=== PATIENT | female | born 1990 | race Caucasian/White ===

== ENCOUNTER 2016-12-03 01:23 | Emergency (ER) | payer BC ==
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
[2016-12-03] MEDS ORDERED: Bacitracin Oint 1 GM U/D Packet TOP ONE (02:27)
[2016-12-03] MEDS ORDERED: Ondansetron 4 MG Tab.DIS PO ONE (02:32)
== END 2016-12-03 02:57 | disposition home or self-care (01) ==
LOC: JP.ED 01:23
DX: S50.312A Abrasion of left elbow, initial encounter (principal); F41.9 Anxiety disorder, unspecified; F10.920 Alcohol use, unspecified with intoxication, uncomplicated; E05.90 Thyrotoxicosis, unspecified without thyrotoxic crisis or storm; Z79.899 Other long term (current) drug therapy; Y04.0XXA Assault by unarmed brawl or fight, initial encounter
CPT/HCPCS: 99284; A9270

== ENCOUNTER 2016-12-22 14:51 | Emergency (ER) | payer BC ==
[2016-12-22] MEDS ORDERED: Ketorolac 30 MG/ML SDV IVPUSH ONE (15:24)
[2016-12-22] MEDS ORDERED: HYDROmorphone 1 MG/ML Syringe IVPUSH ONE (15:24)
[2016-12-22] MEDS ORDERED: methylPREDNISolone Sodium Succinate 125 MG/2 ML SDV IVPUSH ONE (15:24)
[2016-12-22] MEDS ORDERED: Sodium Chloride 0.9% 10 ML Syringe FLUSH PRN (15:25)
[2016-12-22] MEDS ORDERED: diphenhydrAMINE 50 MG/ML SDV IVPUSH ONE (15:25)
--- NOTE | 2016-12-22 15:53 | EDM.PDOC ---
[id number] MIGRAINE Time Seen by Provider: 12/22/16 15:25 Source of Information: Reports: Patient History Limitations: Reports: No Limitations - History of Present Illness INITIAL COMMENTS - FREE TEXT/NARRATIVE: 26-year-old female with chronic migraine headaches has had a headache since yesterday, particularly bad since this morning when she woke up. It is generalized, throbbing, she has mild photophobia and nausea and vomited once this morning. She has been taking topiramate twice daily for the last 2 months and it has been helping but this one she can't get controlled. She comes into the emergency room a couple of times a year, usually gets a combination of Toradol, Dilaudid, an antiemetic and sometimes fluids. Onset: Unknown/Unsure (Started sometime in the last 2 days) Location: Reports: Head Quality: Reports: Throbbing Severity: Moderate Worsens with: Reports: Movement Associated Symptoms: Reports: Malaise, Nausea/Vomiting. 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/BYN History: pt currently on depo shot for control Neurological History: Reports: Migraines Psychiatric History: Reports: Anxiety Endocrine/Metabolic History: Reports: Hyperthyroidism - Infectious Disease History Infectious Disease History: Reports: Chicken Pox Social & Family History - Tobacco Use Smoking Status *Q: Never Smoker Second Hand Smoke Exposure: No - Caffeine Use Caffeine Use: Reports: Coffee - Alcohol Use Days Per Week of Alcohol Use: 0 - Recreational Drug Use Recreational Drug Use: No ED ROS GENERAL - Review of Systems Review Of Systems: See Below Constitutional: Reports: Malaise. Denies: Fever, Chills Respiratory: Denies: Shortness of Breath Cardiovascular: Denies: Chest Pain GI/Abdominal: Reports: Nausea, Vomiting. Denies: Abdominal Pain : Reports: No Symptoms Skin: Reports: No Symptoms - Physical Exam Exam: See Below Exam Limited By: No Limitations General Appearance: Alert, Mild Distress (Looks uncomfortable) Eye Exam: Bilateral Eye: EOMI, PERRL Respiratory/Chest: No Respiratory Distress Neuro Exam (Abbreviated): Alert, Oriented, No Motor/Sensory Deficits Skin Exam: Warm, Dry Course - Vital Signs Last Recorded V/S: Last Vital Signs Temp 98.4 F 12/22/16 15:07 Pulse 67 12/22/16 16:25 Resp 14 12/22/16 16:25 BP 119/76 12/22/16 16:25 Pulse Ox 98 12/22/16 16:25 - Orders/Labs/Meds Orders: Active Orders 24 hr Category Date Time Status Saline Lock Insert [OM.PC] Routine Oth 12/22/16 15:25 Ordered Meds: Medications Discontinued Medications Generic Name Dose Route Start Last Admin Trade Name Ramos PRN Reason Stop Dose Admin Diphenhydramine HCl 25 mg 12/22/16 15:25 12/22/16 15:37 Benadryl IVPUSH 12/22/16 15:26 25 mg ONETIME ONE Administration Hydromorphone HCl 1 mg 12/22/16 15:24 12/22/16 15:39 Dilaudid IVPUSH 12/22/16 15:25 1 mg ONETIME ONE Administration Ketorolac Tromethamine 30 mg 12/22/16 15:24 12/22/16 15:47 Toradol IVPUSH 12/22/16 15:25 30 mg ONETIME ONE Administration Methylprednisolone Sodium Succinate 125 mg 12/22/16 15:24 12/22/16 15:42 Solu-Medrol IVPUSH 12/22/16 15:25 125 mg ONETIME ONE Administration Sodium Chloride 10 ml 12/22/16 15:25 12/22/16 15:39 Saline Flush FLUSH 10 ml ASDIRECTED PRN Administration Keep Vein Open - Re-Assessments/Exams Free Text/Narrative Re-Assessment/Exam: 12/22/16 15:53 A saline lock was placed, and she was given 1 mg of Dilaudid IV, 30 mg of Toradol IV, 25 mg of Benadryl IV, and 125 mg of Solu-Medrol. She was observed for 45 minutes. 12/22/16 16:49 Patient had fairly good relief from the medications. She is going to go home and rest and will return if worsening. Departure - Departure Time of Disposition: 16:59 Disposition: Home, Self-Care 01 Condition: Good Clinical Impression: Migraine - Discharge Information Instructions: Migraine Headache, [id number] Referrals: PCP,None [Primary Care Provider] - Forms: ED Department Discharge Additional Instructions: Rest, fluids, and continue your regular medications as prescribed. Recheck in 2- 3 days if not significant improvement. - My Orders Last 24 Hours: My Active Orders 12/22/16 15:25 Saline Lock Insert [OM.PC] Routine - Assessment/Plan Last 24 Hours: My Active Orders 12/22/16 15:25 Saline Lock Insert [OM.PC] Routine
[2016-12-22 16:26] VITALS: BP 119/76
== END 2016-12-22 17:00 | disposition home or self-care (01) ==
LOC: JP.ED 14:51
DX: G43.909 Migraine, unspecified, not intractable, without status migrainosus (principal); E05.90 Thyrotoxicosis, unspecified without thyrotoxic crisis or storm; Z79.899 Other long term (current) drug therapy
CPT/HCPCS: 96374; 96375; 99283; J1170; J1200; J1885; J2930; J7050

== ENCOUNTER 2017-01-09 06:53 | Emergency (ER) | payer BC ==
[2017-01-09 07:23] VITALS: BP 138/73
[2017-01-09] MEDS ORDERED: Ketorolac 60 MG/2 ML SDV IM ONE (07:42)
--- NOTE | 2017-01-09 08:20 | EDM.PDOC ---
[id number]: BACK PAIN Time Seen by Provider: 01/09/17 07:35 Source of Information: Reports: Patient History Limitations: Reports: No Limitations - History of Present Illness INITIAL COMMENTS - FREE TEXT/NARRATIVE: 26-year-old female with chronic low back pain intermittently has a flareup of fairly intense pain in the right lower back since yesterday. She was lifting some heavy or objects at work yesterday and "overdid it". Her back was bothering her enough this morning that she had to leave work. She is able to ambulate, no incontinence, no significant symptoms radiating down the legs. She has some pain that extends into the right posterior buttock and hip area. No recent direct trauma. 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/BYN History: pt currently on depo shot for control Musculoskeletal History: Reports: Back Pain, Chronic Neurological History: Reports: Migraines Psychiatric History: Reports: Anxiety Endocrine/Metabolic History: Reports: Hyperthyroidism - Infectious Disease History Infectious Disease History: Reports: Chicken Pox Social & Family History - Tobacco Use Smoking Status *Q: Never Smoker Second Hand Smoke Exposure: No - Caffeine Use Caffeine Use: Reports: Coffee - Alcohol Use Days Per Week of Alcohol Use: 0 - Recreational Drug Use Recreational Drug Use: No ED ROS GENERAL - Review of Systems Review Of Systems: See Below Constitutional: Denies: Fever Respiratory: Denies: Shortness of Breath GI/Abdominal: Denies: Nausea, Vomiting Skin: Reports: No Symptoms Neurological: Reports: No Symptoms ED EXAM,LOWER BACK PAIN/INJURY - Physical Exam Exam: See Below Exam Limited By: No Limitations General Appearance: Alert, Mild Distress (Patient does look uncomfortable, tends to lean forward which is the most comfortable position) Respiratory/Chest: No Respiratory Distress Back Exam: Other (Reacts with point tenderness to palpation along the right paralumbar area, increased pain with extension of the back against resistance) Neurological: No Motor/Sensory Deficits Skin Exam: Warm, Dry Course - Vital Signs Last Recorded V/S: Last Vital Signs Temp 98.5 F 01/09/17 07:26 Pulse 83 01/09/17 07:26 Resp 15 01/09/17 07:26 BP 138/73 01/09/17 07:26 Pulse Ox 98 01/09/17 07:26 - Orders/Labs/Meds Meds: Medications Discontinued Medications Generic Name Dose Route Start Last Admin Trade Name Freq PRN Reason Stop Dose Admin Ketorolac Tromethamine 60 mg 01/09/17 07:42 01/09/17 07:51 Toradol IM 01/09/17 07:43 60 mg ONETIME ONE Administration - Re-Assessments/Exams Free Text/Narrative Re-Assessment/Exam: 01/09/17 08:18 Patient was given an injection of Toradol 60 mg IM and supplied with 15 Flexeril to take 3 times a day. She is to increase her activity as soon as possible and I strongly suggested rechecking with her primary care to set up an appointment with physical therapy so she can learn how to strengthen her lower back. Departure - Departure Time of Disposition: 08:29 Disposition: Home, Self-Care 01 Condition: Good Clinical Impression: Acute exacerbation of chronic low back pain - Discharge Information Instructions: Back Pain, Adult, [id number] Referrals: Merline Griggs ORTHODONTIST [Primary Care Provider] - Forms: ED Department Discharge Care Plan Goals: Increase activity over the next 48 hours but avoid lifting. I would strongly encourage you to recheck with your primary care provider for a physical therapy consultation to strengthen your lower back. Return to ER if worsening such as significant numbness or weakness of your legs or incontinence.
== END 2017-01-09 08:29 | disposition home or self-care (01) ==
LOC: JP.ED 06:53
DX: G89.29 Other chronic pain (principal); M54.5 Low back pain; G43.909 Migraine, unspecified, not intractable, without status migrainosus; E03.9 Hypothyroidism, unspecified; F41.9 Anxiety disorder, unspecified; Z79.899 Other long term (current) drug therapy
CPT/HCPCS: 96372; 99283; J1885

== ENCOUNTER 2017-01-14 20:45 | Emergency (ER) | payer BC ==
[2017-01-14 20:59] VITALS: BP 131/80
[2017-01-14] MEDS ORDERED: Sodium Chloride 0.9% 1,000 ML IV STA (21:46)
--- NOTE | 2017-01-14 21:51 | EDM.PDOC ---
ED HPI GENERAL MEDICAL PROBLEM - General Chief Complaint: Gastrointestinal Problem Stated Complaint: BLOOD IN STOOL AND BACK AND STOMACH PAIN Time Seen by Provider: 01/14/17 21:39 Source of Information: Reports: Patient, Family, RN Notes Reviewed History Limitations: Reports: No Limitations (Is) - History of Present Illness INITIAL COMMENTS - FREE TEXT/NARRATIVE: 26-year-old female presents abdominal pain, she states the abdominal pain started today she is having some bloody stool as well as black tarry stools is 9 /10 and is having some nausea no vomiting no history of abdominal surgeries back pain Pain Score (Numeric/FACES): 9 abdomen Pain Score (Numeric/FACES): 9 - Related Data Allergies Allergy/AdvReac Type Severity Reaction Status Date / Time No Known Allergies Allergy Verified 01/14/17 21:01 Home Meds: Home Meds Levothyroxine 125 mcg PO DAILY 04/16/15 [History] Ibuprofen 600 mg PO QID PRN 04/17/15 [History] SUMAtriptan [Imitrex] 50 mg PO ASDIRECTED PRN 01/08/16 [History] Topiramate 50 mg PO DAILY 12/22/16 [History] Past Medical History HEENT History: Reports: Impaired Vision Gastrointestinal History: Reports: Chronic Constipation 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: , 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 (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) Other OB/BYN History: pt currently on depo shot for control Musculoskeletal History: Reports: Back Pain, Chronic Neurological History: Reports: Migraines Psychiatric History: Reports: Anxiety Endocrine/Metabolic History: Reports: Hyperthyroidism - Infectious Disease History Infectious Disease History: Reports: Chicken Pox - Past Surgical History Cardiovascular Surgical History: Reports: None Respiratory Surgical History: Reports: None GI Surgical History: Reports: None Female Surgical History: Reports: None Endocrine Surgical History: Reports: None Neurological Surgical History: Reports: None Musculoskeletal Surgical History: Reports: None Oncologic Surgical History: Reports: None Dermatological Surgical History: Reports: None Social & Family History - Tobacco Use Smoking Status *Q: Never Smoker Second Hand Smoke Exposure: No - Caffeine Use Caffeine Use: Reports: None - Alcohol Use Days Per Week of Alcohol Use: 0 - Recreational Drug Use Recreational Drug Use: No ED ROS GENERAL - Review of Systems Review Of Systems: See Below Constitutional: Denies: Fever, Chills HEENT: Reports: No Symptoms Respiratory: Reports: No Symptoms Cardiovascular: Reports: No Symptoms GI/Abdominal: Reports: Abdominal Pain, Black Stool, Bloody Stool, Nausea : Reports: No Symptoms Musculoskeletal: Reports: No Symptoms Skin: Reports: No Symptoms Neurological: Reports: No Symptoms ED EXAM, GI/ABD - Physical Exam Exam: See Below Text/Narrative:: General: Female, in mild discomfort secondary to abdominal pain, alert and oriented x3 HEENT: head is atraumatic normocephalic, eyes pupils equal round reactive to light, sclera clear no conjunctivitis appreciated. Ears tympanic membranes clear and pineda landmarks and light reflex are present bilaterally canals are clear. Nose no septal deviation, nares are clear, no blood present. Mouth mucosa is moist and pink no erythema or exudate noted in soft palate, tongue is midline uvula is midline, dentition is intact. Neck: Supple no thyromegaly no tracheal deviation. Nodes: Cervical nodes subclavicular nodes nontender no palpable lymphadenopathy noted. Lungs: clear to auscultation bilaterally with symmetrical respirations, no adventitious noise appreciated. CV: Regular rate and rhythm S1 and S2 appreciated no murmurs rubs or gallops noted. Abdomen: Soft, generalized tenderness to palpation, no palpable masses or organomegaly appreciated, no distention no guarding bowel sounds are decreased] Neuro: Cranial nerves II through XII grossly intact Skin: Warm and dry, intact Extremities: No lower extremity edema appreciated, pedal pulse is +2. Course - Vital Signs Last Recorded V/S: Last Vital Signs Temp 97.5 F 01/14/17 20:58 Pulse 102 H 01/14/17 20:58 Resp 16 01/14/17 20:58 BP 131/80 01/14/17 20:58 Pulse Ox 99 01/14/17 20:58 - Orders/Labs/Meds Orders: Active Orders 24 hr Category Date Time Status Peripheral IV Care [RC] . DIRECTED Care 01/14/17 21:47 Active Abdomen Pelvis w Cont [CT] Urgent Exams 01/14/17 21:46 Taken Iopamidol [Isovue-300 (61%)] Med 01/14/17 22:30 Active 150 ml IV . DIRECTED PRN Sodium Chloride 0.9% [Normal Saline] 90 ml Med 01/14/17 22:30 Active IV ASDIRECTED Sodium Chloride 0.9% [Saline Flush] Med 01/14/17 21:46 Active 10 ml FLUSH ASDIRECTED PRN Peripheral IV Insertion Adult [OM.PC] Urgent Oth 01/14/17 21:46 Ordered Medication Orders Sodium Chloride (Normal Saline) 90 mls @ 3.5 mls/sec IV ASDIRECTED BEKAH Last Admin: 01/14/17 22:49 Dose: 3.5 mls/sec Iopamidol (Isovue-300 (61%)) 150 ml IV . DIRECTED PRN PRN Reason: RADIOLOGY EXAM Stop: 01/15/17 22:31 Last Admin: 01/14/17 22:49 Dose: 150 ml Sodium Chloride (Saline Flush) 10 ml FLUSH ASDIRECTED PRN PRN Reason: Keep Vein Open Last Admin: 01/14/17 23:15 Dose: 10 ml Admin: 01/14/17 23:13 Dose: 10 ml Labs: Laboratory Tests 01/14/17 01/14/17 01/14/17 Range/Units 21:46 22:00 22:01 WBC 9.0 (4.5-11.0) K/uL RBC 4.30 (3.30-5.50) M/uL Hgb 13.5 (12.0-15.0) g/dL Hct 39.7 (36.0-48.0) % MCV 92 (80-98) fL MCH 31 (27-31) pg MCHC 34 (32-36) % Plt Count 318 (150-400) K/uL Neut % (Auto) 58 (36-66) % Lymph % (Auto) 29 (24-44) % [place] % (Auto) 12 H (2-6) % Eos % (Auto) 1 L (2-4) % Baso % (Auto) 0 (0-1) % Sodium 142 (140-148) mmol/L Potassium 3.6 (3.6-5.2) mmol/L Chloride 109 H (100-108) mmol/L Carbon Dioxide 24 (21-32) mmol/L Anion Gap 12.6 (5.0-14.0) mmol/L BUN 18 (7-18) mg/dL Creatinine 1.2 H (0.6-1.0) mg/dL Est Cr Clr Drug Dosing 60.81 mL/min Estimated GFR (MDRD) 54 L (>60) Glucose 108 H (74-106) mg/dL Lactic Acid 1.8 (0.4-2.0) mmol/L Calcium 8.5 (8.5-10.1) mg/dL Total Bilirubin 0.5 (0.2-1.0) mg/dL AST 13 L (15-37) U/L ALT 11 L (12-78) U/L Alkaline Phosphatase 71 (46-116) U/L Total Protein 7.0 (6.4-8.2) g/dL Albumin 3.4 (3.4-5.0) g/dL Globulin 3.6 H (2.3-3.5) g/dL Albumin/Globulin Ratio 0.9 L (1.2-2.2) Lipase 192 (73-393) U/L Urine Color Urine Appearance Urine pH (4.5-8.0) Ur Specific [place] (1.008-1.030) Urine Protein (NEGATIVE) mg/dL Urine Glucose (UA) (NEGATIVE) mg/dL Urine Ketones (NEGATIVE) mg/dL Urine Occult Blood (NEGATIVE) Urine Nitrite (NEGATIVE) Urine Bilirubin (NEGATIVE) Urine Urobilinogen (NORMAL) mg/dL Ur Leukocyte Esterase (NEGATIVE) Urine RBC (0-5) Urine WBC (0-5) Ur Epithelial Cells Amorphous Sediment Urine Bacteria Urine Mucus Urine HCG, Qual 01/14/17 01/14/17 Range/Units 22:01 22:01 WBC (4.5-11.0) K/uL RBC (3.30-5.50) M/uL Hgb (12.0-15.0) g/dL Hct (36.0-48.0) % MCV (80-98) fL MCH (27-31) pg MCHC (32-36) % Plt Count (150-400) K/uL Neut % (Auto) (36-66) % Lymph % (Auto) (24-44) % [place] % (Auto) (2-6) % Eos % (Auto) (2-4) % Baso % (Auto) (0-1) % Sodium (140-148) mmol/L Potassium (3.6-5.2) mmol/L Chloride (100-108) mmol/L Carbon Dioxide (21-32) mmol/L Anion Gap (5.0-14.0) mmol/L BUN (7-18) mg/dL Creatinine (0.6-1.0) mg/dL Est Cr Clr Drug Dosing mL/min Estimated GFR (MDRD) (>60) Glucose (74-106) mg/dL Lactic Acid (0.4-2.0) mmol/L Calcium (8.5-10.1) mg/dL Total Bilirubin (0.2-1.0) mg/dL AST (15-37) U/L ALT (12-78) U/L Alkaline Phosphatase (46-116) U/L Total Protein (6.4-8.2) g/dL Albumin (3.4-5.0) g/dL Globulin (2.3-3.5) g/dL Albumin/Globulin Ratio (1.2-2.2) Lipase (73-393) U/L Urine Color Yellow Urine Appearance Slightly cloudy Urine pH 6.5 (4.5-8.0) Ur Specific [place] 1.015 (1.008-1.030) Urine Protein Negative (NEGATIVE) mg/dL Urine Glucose (UA) Normal (NEGATIVE) mg/dL Urine Ketones Negative (NEGATIVE) mg/dL Urine Occult Blood Negative (NEGATIVE) Urine Nitrite Negative (NEGATIVE) Urine Bilirubin Small (NEGATIVE) Urine Urobilinogen 1 (NORMAL) mg/dL Ur Leukocyte Esterase Negative (NEGATIVE) Urine RBC Not seen (0-5) Urine WBC Not seen (0-5) Ur Epithelial Cells Moderate Amorphous Sediment Moderate Urine Bacteria Few Urine Mucus Few Urine HCG, Qual Negative Meds: Medications Generic Name Dose Route Start Last Admin Trade Name Freq PRN Reason Stop Dose Admin Sodium Chloride 90 mls @ 3.5 mls/sec 01/14/17 22:30 01/14/17 22:49 Normal Saline IV 3.5 mls/sec ASDIRECTED BEKAH Administration Iopamidol 150 ml 01/14/17 22:30 01/14/17 22:49 Isovue-300 (61%) IV 01/15/17 22:31 150 ml . DIRECTED PRN Administration RADIOLOGY EXAM Sodium Chloride 10 ml 01/14/17 21:46 01/14/17 23:15 Saline Flush FLUSH 10 ml ASDIRECTED PRN Administration Keep Vein Open Discontinued Medications Generic Name Dose Route Start Last Admin Trade Name Freq PRN Reason Stop Dose Admin Hydromorphone HCl 0.5 mg 01/14/17 23:00 01/14/17 23:10 Dilaudid IVPUSH 01/14/17 23:01 0.5 mg ONETIME ONE Administration Hydromorphone HCl 1 mg 01/14/17 23:50 Dilaudid IVPUSH 01/14/17 23:51 ONETIME ONE Sodium Chloride 1,000 mls @ 500 mls/hr 01/14/17 21:46 01/14/17 23:03 Normal Saline IV 01/14/17 23:45 500 mls/hr .BOLUS STA Administration Ondansetron HCl 4 mg 01/14/17 23:00 01/14/17 23:10 Zofran IVPUSH 01/14/17 23:01 4 mg ONETIME ONE Administration Sodium Chloride 10 ml 01/14/17 22:30 01/14/17 22:49 Saline Flush FLUSH 01/14/17 22:31 10 ml ONETIME ONE Administration Departure - Departure Time of Disposition: 23:53 Disposition: Home, Self-Care 01 Condition: Good Clinical Impression: Functional constipation - Discharge Information Forms: ED Department Discharge Additional Instructions: Take the full colonoscopy prep with MiraLAX, Please followup with your primary care provider in 3-5 days if not better, please call return to the emergency department with worsening of symptoms. - My Orders Last 24 Hours: My Active Orders 01/14/17 21:46 Abdomen Pelvis w Cont [CT] Urgent Sodium Chloride 0.9% [Saline Flush] 10 ml FLUSH ASDIRECTED PRN Peripheral IV Insertion Adult [OM.PC] Urgent 01/14/17 21:47 Peripheral IV Care [RC] . DIRECTED 01/14/17 22:30 Iopamidol [Isovue-300 (61%)] 150 ml IV . DIRECTED PRN Sodium Chloride 0.9% [Normal Saline] 90 ml IV ASDIRECTED - Assessment/Plan Last 24 Hours: My Active Orders 01/14/17 21:46 Abdomen Pelvis w Cont [CT] Urgent Sodium Chloride 0.9% [Saline Flush] 10 ml FLUSH ASDIRECTED PRN Peripheral IV Insertion Adult [OM.PC] Urgent 01/14/17 21:47 Peripheral IV Care [RC] . DIRECTED 01/14/17 22:30 Iopamidol [Isovue-300 (61%)] 150 ml IV . DIRECTED PRN Sodium Chloride 0.9% [Normal Saline] 90 ml IV ASDIRECTED Plan: Assessment Acuity = acute Site and laterality = functional constipation Etiology = slow transit time Manifestations = abdominal pain Location of injury = Home Lab values = CBC unremarkable, creatinine elevated 1.2 consistent acute renal failure stage GII urinalysis unremarkable beta-hCG was negative, occult blood diagnostic negative, CT scan shows no acute process large amount of stool is noted: Plan Recommend colonoscopy prep with MiraLAX for clean out follow-up primary care 3- 5 days for reevaluation Patient was in agreement with the plan all questions were answered, they were instructed to return to the emergency department or call for worsening symptoms. This note was dictated using [employer] voice recognition software please call with any questions.
[2017-01-14] MEDS ORDERED: Iopamidol 612 MG/ML 150 ML Bottle IV PRN (22:30)
[2017-01-14] MEDS ORDERED: Sodium Chloride 0.9% 90 ML IV SCH (22:30)
[2017-01-14] MEDS ORDERED: Sodium Chloride 0.9% 10 ML Syringe FLUSH ONE (22:30)
[2017-01-14] MEDS ORDERED: Ondansetron 4 MG/2 ML SDV IVPUSH ONE (23:00)
[2017-01-14] MEDS ORDERED: HYDROmorphone 0.5 MG/0.5 ML Syringe IVPUSH ONE (23:00)
[2017-01-14] MEDS: Sodium Chloride 0.9% 10 ML Syringe FLUSH PRN ×2 (23:13→23:15)
[2017-01-14] MEDS ORDERED: HYDROmorphone 1 MG/ML Syringe IVPUSH ONE (23:50)
== END 2017-01-15 00:32 | disposition home or self-care (01) ==
LOC: JP.ED 20:45
DX: K59.04 Chronic idiopathic constipation (principal); F41.9 Anxiety disorder, unspecified; E03.9 Hypothyroidism, unspecified; Z79.899 Other long term (current) drug therapy
CPT/HCPCS: 36415; 74177; 80053; 81001; 81025; 82270; 83605; 83690; 85025; 96361; 96374; 96375; 96376; 99284; J1170; J2405; J7030; J7040; J7050

== ENCOUNTER 2017-08-26 02:24 | Emergency (ER) | payer BC ==
[2017-08-26 02:34] VITALS: BP 130/80
[2017-08-26] MEDS ORDERED: Lactated Ringers 1,000 ML IV ONE (02:54)
[2017-08-26] MEDS ORDERED: diphenhydrAMINE 50 MG/ML SDV IVPUSH ONE (02:55)
[2017-08-26] MEDS ORDERED: Sodium Chloride 0.9% 10 ML Syringe FLUSH PRN (02:55)
[2017-08-26] MEDS ORDERED: Prochlorperazine 5 MG in Sodium Chloride 0.9% 50 ML IV ONE (02:55)
[2017-08-26] MEDS ORDERED: fentaNYL 100 MCG/2 ML SDV IVPUSH ONE ×2 (02:58→04:39)
--- NOTE | 2017-08-26 03:01 | EDM.PDOC ---
ED HPI GENERAL MEDICAL PROBLEM - General Chief Complaint: Headache Stated Complaint: HEADACHE FOR 5 DAYS Time Seen by Provider: 08/26/17 02:54 Source of Information: Reports: Patient, Family, RN Notes Reviewed History Limitations: Reports: No Limitations - History of Present Illness INITIAL COMMENTS - FREE TEXT/NARRATIVE: 27-year-old female presents emergency department today with complaint of migraine type headache, she does have extensive history of migraines usually uses a triptan however she is currently estimates about 12 weeks intrauterine . She does have nausea and vomiting as well as photophobia she describes the migraine is typical for her she has been limiting herself to Tylenol which has provided no relief Headache Pain Score (Numeric/FACES): 5 - Related Data Allergies Allergy/AdvReac Type Severity Reaction Status Date / Time No Known Allergies Allergy Verified 01/14/17 21:01 Home Meds: Home Meds Levothyroxine 200 mcg PO DAILY 04/16/15 [History] SUMAtriptan [Imitrex] 50 mg PO ASDIRECTED PRN 01/08/16 [History] Acetaminophen [Tylenol] 325 mg PO Q4H PRN 08/26/17 [History] Past Medical History HEENT History: Reports: Impaired Vision Gastrointestinal History: Reports: Chronic Constipation 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 SCREENER History: 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: , Other (See Below) Other OB/BYN History: due date mar 10 2018 Musculoskeletal History: Reports: Back Pain, Chronic Neurological History: Reports: Migraines Psychiatric History: Reports: Anxiety Endocrine/Metabolic History: Reports: Hyperthyroidism - Infectious Disease History Infectious Disease History: Reports: Chicken Pox - Past Surgical History Cardiovascular Surgical History: Reports: None Respiratory Surgical History: Reports: None GI Surgical History: Reports: None Female Surgical History: Reports: None Endocrine Surgical History: Reports: None Neurological Surgical History: Reports: None Musculoskeletal Surgical History: Reports: None Oncologic Surgical History: Reports: None Dermatological Surgical History: Reports: None Social & Family History - Family History Family Medical History: Noncontributory - Tobacco Use Smoking Status *Q: Never Smoker Second Hand Smoke Exposure: No - Caffeine Use Caffeine Use: Reports: Coffee - Alcohol Use Days Per Week of Alcohol Use: 0 - Recreational Drug Use Recreational Drug Use: No ED ROS GENERAL - Review of Systems Review Of Systems: See Below Constitutional: Reports: No Symptoms HEENT: Reports: Eye Pain Respiratory: Reports: No Symptoms Cardiovascular: Reports: No Symptoms GI/Abdominal: Reports: Nausea, Vomiting : Reports: No Symptoms Musculoskeletal: Reports: No Symptoms Skin: Reports: No Symptoms Neurological: Reports: Headache - Physical Exam Exam: See Below Exam Limited By: No Limitations General Appearance: Alert, Moderate Distress Eye Exam: Bilateral Eye: Normal Fundi, Normal Inspection Respiratory/Chest: No Respiratory Distress, Lungs Clear, Normal Breath Sounds, No Accessory Muscle Use Cardiovascular: Regular Rate, Rhythm, No Murmur Course - Vital Signs Last Recorded V/S: Last Vital Signs Temp 98.1 F 08/26/17 02:32 Pulse 95 08/26/17 02:32 Resp 16 08/26/17 02:32 BP 130/80 08/26/17 02:32 Pulse Ox 98 08/26/17 02:32 - Orders/Labs/Meds Orders: Active Orders 24 hr Category Date Time Status Peripheral IV Care [RC] . DIRECTED Care 08/26/17 02:57 Active Magnesium Sulfate/Water [Magnesium Sulfate 2 GM in Med 08/26/17 04:39 Active Water 50 ML] 2 gm Premix Bag 1 bag IV ONETIME Sodium Chloride 0.9% [Saline Flush] Med 08/26/17 02:55 Active 10 ml FLUSH ASDIRECTED PRN Peripheral IV Insertion Adult [OM.PC] Urgent Oth 08/26/17 02:54 Ordered Medication Orders Magnesium Sulfate 2 gm/ Premix 50 mls @ 12.5 mls/hr IV ONETIME ONE Stop: 08/26/17 08:38 Last Admin: 08/26/17 04:53 Dose: 25 mls/hr Sodium Chloride (Saline Flush) 10 ml FLUSH ASDIRECTED PRN PRN Reason: Keep Vein Open Last Admin: 08/26/17 03:13 Dose: 10 ml Meds: Medications Generic Name Dose Route Start Last Admin Trade Name Freq PRN Reason Stop Dose Admin Magnesium Sulfate 2 gm/ Premix 50 mls @ 12.5 mls/hr 08/26/17 04:39 08/26/17 04:53 IV 08/26/17 08:38 25 mls/hr ONETIME ONE Administration Sodium Chloride 10 ml 08/26/17 02:55 08/26/17 03:13 Saline Flush FLUSH 10 ml ASDIRECTED PRN Administration Keep Vein Open Discontinued Medications Generic Name Dose Route Start Last Admin Trade Name Freq PRN Reason Stop Dose Admin Diphenhydramine HCl 50 mg 08/26/17 02:55 08/26/17 03:17 Benadryl IVPUSH 08/26/17 02:56 50 mg ONETIME ONE Administration Fentanyl 100 mcg 08/26/17 02:58 08/26/17 03:14 Sublimaze IVPUSH 08/26/17 02:59 100 mcg ONETIME ONE Administration Fentanyl 50 mcg 08/26/17 04:39 08/26/17 04:52 Sublimaze IVPUSH 08/26/17 04:40 50 mcg ONETIME ONE Administration Lactated Ringer's 1,000 mls @ 999 mls/hr 08/26/17 02:54 08/26/17 03:10 Ringers, Lactated IV 08/26/17 03:54 999 mls/hr BOLUS ONE Administration Prochlorperazine Edisylate 5 51 mls @ 150 mls/hr 08/26/17 02:55 08/26/17 03: 19 mg/ Sodium Chloride IV 08/26/17 03:15 150 mls/hr ONETIME ONE Administration Sumatriptan Succinate 6 mg 08/26/17 04:39 08/26/17 04:53 Imitrex SUBCUT 08/26/17 04:40 6 mg ONETIME ONE Administration Departure - Departure Time of Disposition: 06:27 Disposition: Home, Self-Care 01 Condition: Good Clinical Impression: Migraine Qualifiers: Weeks of gestation: 12 weeks Qualified Code(s): Z3A.12 - 12 weeks gestation of - Discharge Information Referrals: Margo Borja MD [Primary Care Provider] - Forms: ED Department Discharge, ED Return to Work/School Form Additional Instructions: Resume your regular medications, Please followup with your primary care provider in 3-5 days if not better, please call return to the emergency department with worsening of symptoms. - My Orders Last 24 Hours: My Active Orders 08/26/17 02:54 Peripheral IV Insertion Adult [OM.PC] Urgent 08/26/17 02:55 Sodium Chloride 0.9% [Saline Flush] 10 ml FLUSH ASDIRECTED PRN 08/26/17 02:57 Peripheral IV Care [RC] . DIRECTED 08/26/17 04:39 Magnesium Sulfate/Water [Magnesium Sulfate 2 GM in Water 50 ML] 2 gm Premix Bag 1 bag IV ONETIME - Assessment/Plan Last 24 Hours: My Active Orders 08/26/17 02:54 Peripheral IV Insertion Adult [OM.PC] Urgent 08/26/17 02:55 Sodium Chloride 0.9% [Saline Flush] 10 ml FLUSH ASDIRECTED PRN 08/26/17 02:57 Peripheral IV Care [RC] . DIRECTED 08/26/17 04:39 Magnesium Sulfate/Water [Magnesium Sulfate 2 GM in Water 50 ML] 2 gm Premix Bag 1 bag IV ONETIME Plan: Assessment Acuity = acute Site and laterality = migraine type headache complicated patient in first trimester at 12 weeks intrauterine Etiology = unknown etiology Manifestations = nausea vomiting photophobia Location of injury = Home Lab values = none Plan She had improvement with 1 L of fluids, 150 g of fentanyl, Benadryl, Compazine and magnesium sulfate, and Imitrex, plan is to follow-up with primary care 3-5 days for reevaluation This note was dictated using [employer] voice recognition software please call with any questions on syntax or tanner.
[2017-08-26] MEDS ORDERED: SUMAtriptan 6 MG/0.5 ML SDV SUBCUT ONE (04:39)
[2017-08-26] MEDS ORDERED: Magnesium Sulfate/Water 2 GM in Premix Bag 1 BAG IV ONE (04:39)
== END 2017-08-26 07:06 | disposition home or self-care (01) ==
LOC: JP.ED 02:24
DX: O99.351 Diseases of the nervous system complicating pregnancy, first trimester (principal); G43.909 Migraine, unspecified, not intractable, without status migrainosus; O99.281 Endocrine, nutritional and metabolic diseases complicating pregnancy, first trimester; E05.90 Thyrotoxicosis, unspecified without thyrotoxic crisis or storm; Z79.899 Other long term (current) drug therapy; Z3A.12 12 weeks gestation of pregnancy
CPT/HCPCS: 96361; 96365; 96366; 96372; 96375; 96376; 99284; J0780; J1200; J3010; J3030; J3475; J7050; J7120

== ENCOUNTER 2017-10-09 15:32 | Emergency (ER) | payer BC ==
[2017-10-09 15:53] VITALS: BP 147/88
[2017-10-09] MEDS ORDERED: Ketorolac 30 MG/ML SDV IVPUSH ONE (16:19)
[2017-10-09] MEDS ORDERED: Metoclopramide 10 MG/2 ML SDV IVPUSH ONE (16:19)
[2017-10-09] MEDS ORDERED: Sodium Chloride 0.9% 1,000 ML IV SCH (16:30)
--- NOTE | 2017-10-09 16:40 | EDM.PDOC ---
ED HPI GENERAL MEDICAL PROBLEM - General Chief Complaint: Headache Stated Complaint: MIGRAINE Time Seen by Provider: 10/09/17 16:00 Source of Information: Reports: Patient, Family History Limitations: Reports: No Limitations - History of Present Illness INITIAL COMMENTS - FREE TEXT/NARRATIVE: 19-year-old female with chronic migraine headaches, somewhat worse over the past several months now that she is . She has been treated several times in the last month by her primary provider, but was up in the area today and has had a headache for the last 3 days so came in for treatment. She had some nausea with vomiting this morning, no emesis this afternoon. No fevers or chills. Her headache is bandlike, across the front and forehead. It is very similar to her previous headaches. Onset: Unknown/Unsure Duration: Day(s): (3 days) Location: Reports: Head Severity: Moderate Associated Symptoms: Reports: Nausea/Vomiting. Denies: Confusion, Chest Pain, Cough, Shortness of Breath Headache Pain Score (Numeric/FACES): 9 - Related Data Allergies Allergy/AdvReac Type Severity Reaction Status Date / Time No Known Allergies Allergy Verified 01/14/17 21:01 Home Meds: Home Meds Levothyroxine 200 mcg PO DAILY 04/16/15 [History] SUMAtriptan [Imitrex] 50 mg PO ASDIRECTED PRN 01/08/16 [History] Acetaminophen [Tylenol] 325 mg PO Q4H PRN 08/26/17 [History] Vits #93/Iron Fum/FA [ Formula Tablet] 1 tab PO DAILY 10/09/17 [History] Past Medical History HEENT History: Reports: Impaired Vision Gastrointestinal History: Reports: Chronic Constipation 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: , Other (See Below) Other OB/BYN History: due date mar 10 2018 Musculoskeletal History: Reports: Back Pain, Chronic Neurological History: Reports: Migraines Psychiatric History: Reports: Anxiety Endocrine/Metabolic History: Reports: Hyperthyroidism Hematologic History: Reports: None Immunologic History: Reports: None - Infectious Disease History Infectious Disease History: Reports: Chicken Pox - Past Surgical History GI Surgical History: Reports: None Endocrine Surgical History: Reports: None Neurological Surgical History: Reports: None Musculoskeletal Surgical History: Reports: None Social & Family History - Family History Family Medical History: Noncontributory - Tobacco Use Smoking Status *Q: Never Smoker Second Hand Smoke Exposure: No - Caffeine Use Caffeine Use: Reports: Coffee - Alcohol Use Days Per Week of Alcohol Use: 0 - Recreational Drug Use Recreational Drug Use: No ED ROS GENERAL - Review of Systems Review Of Systems: See Below Constitutional: Denies: Fever, Chills, Malaise HEENT: Denies: Vision Change Respiratory: Denies: Shortness of Breath GI/Abdominal: Reports: Nausea, Vomiting. Denies: Abdominal Pain : Reports: No Symptoms Musculoskeletal: Denies: Neck Pain Neurological: Reports: Dizziness, Headache - Physical Exam Exam: See Below Exam Limited By: No Limitations General Appearance: Alert, Mild Distress (Looks fairly uncomfortable) Eye Exam: Bilateral Eye: Normal Inspection Head Exam: Atraumatic Respiratory/Chest: No Respiratory Distress Neuro Exam (Abbreviated): Alert, Oriented, No Motor/Sensory Deficits Psychiatric: Depressed Mood, Flat Affect Skin Exam: Warm, Dry Course - Vital Signs Last Recorded V/S: Last Vital Signs Temp 98.3 F 10/09/17 15:59 Pulse 109 H 10/09/17 15:59 Resp 16 10/09/17 15:59 BP 147/88 H 10/09/17 15:59 Pulse Ox 98 10/09/17 15:59 - Orders/Labs/Meds Meds: Medications Discontinued Medications Generic Name Dose Route Start Last Admin Trade Name Ramos PRN Reason Stop Dose Admin Fentanyl 100 mcg 10/09/17 17:36 10/09/17 17:43 Sublimaze IVPUSH 10/09/17 17:37 100 mcg ONETIME ONE Administration Sodium Chloride 1,000 mls @ 1,000 mls/hr 10/09/17 16:30 10/09/17 16:34 Normal Saline IV 1,000 mls/hr ASDIRECTED BEKAH Administration Ketorolac Tromethamine 30 mg 10/09/17 16:19 10/09/17 16:39 Toradol IVPUSH 10/09/17 16:20 30 mg ONETIME ONE Administration Metoclopramide HCl 10 mg 10/09/17 16:19 10/09/17 16:41 Reglan IVPUSH 10/09/17 16:20 10 mg ONETIME ONE Administration - Re-Assessments/Exams Free Text/Narrative Re-Assessment/Exam: 10/09/17 16:43 An IV was started and she was given 1 L normal saline. I did discuss the situation with her CAR REFINISHER physician in [place], who recently did an MRI of her head which was normal. She agreed with treatment with fluids, antibiotics and a dose of Toradol now that she is in her second trimester. She was suspicious we would not get her discharged without a dose of fentanyl or other narcotic, she stopped her hydrocodone when she reached her second semester. 10/09/17 17:37 Patient is still very uncomfortable, holding her forehead and complaining of a 9 out of 10 pain. She was given 100 g of fentanyl IV with the anticipation of discharge without any further treatment. Departure - Departure Time of Disposition: 18:13 Disposition: Home, Self-Care 01 Condition: Fair Clinical Impression: Migraine - Discharge Information Instructions: Recurrent Migraine Headache, [id number] Referrals: Margo Borja MD [Primary Care Provider] - Forms: ED Department Discharge Care Plan Goals: Rest tonight, continue your regular medications and call your CAR REFINISHER if symptoms are persistent.
[2017-10-09] MEDS ORDERED: fentaNYL 100 MCG/2 ML SDV IVPUSH ONE (17:36)
== END 2017-10-09 18:13 | disposition home or self-care (01) ==
LOC: JP.ED 15:32
DX: O99.352 Diseases of the nervous system complicating pregnancy, second trimester (principal); G43.909 Migraine, unspecified, not intractable, without status migrainosus; O99.282 Endocrine, nutritional and metabolic diseases complicating pregnancy, second trimester; E05.90 Thyrotoxicosis, unspecified without thyrotoxic crisis or storm; Z79.899 Other long term (current) drug therapy; Z3A.16 16 weeks gestation of pregnancy
CPT/HCPCS: 96361; 96374; 96375; 99283; J1885; J2765; J3010; J7040

== ENCOUNTER 2017-12-08 08:11 | Emergency (ER) | payer BC, MEDICAID ==
[2017-12-08] MEDS ORDERED: Ondansetron 4 MG/2 ML SDV IVPUSH ONE (08:59)
[2017-12-08] MEDS ORDERED: Sodium Chloride 0.9% 1,000 ML IV SCH ×2 (09:00→11:15)
[2017-12-08] MEDS ORDERED: HYDROmorphone 0.5 MG/0.5 ML Syringe IVPUSH ONE ×4 (09:00→13:31)
[2017-12-08] MEDS ORDERED: LORazepam 2 MG/ML SDV IVPUSH ONE ×2 (09:00→10:54)
--- NOTE | 2017-12-08 09:01 | EDM.PDOC ---
ED HPI GENERAL MEDICAL PROBLEM - General Chief Complaint: Headache Stated Complaint: HEADACHE Time Seen by Provider: 12/08/17 09:01 Source of Information: Reports: Patient History Limitations: Reports: No Limitations - History of Present Illness INITIAL COMMENTS - FREE TEXT/NARRATIVE: pt is 26 weeks and she is having a very severe headache which started on Mon and is still going. She was given some meds for nausea but that has not been helping. Onset: Other ( started on mon. ) Duration: Hour(s): Location: Reports: Head Associated Symptoms: Reports: Headaches, Other (pt is nauseated but has not vomited. ) HEADACHE Pain Score (Numeric/FACES): 9 - Related Data Allergies Allergy/AdvReac Type Severity Reaction Status Date / Time No Known Allergies Allergy Verified 12/08/17 08:29 Home Meds: Home Meds Levothyroxine 200 mcg PO DAILY 04/16/15 [History] Acetaminophen [Tylenol] 325 mg PO Q4H PRN 08/26/17 [History] Vits #93/Iron Fum/FA [ Formula Tablet] 1 tab PO DAILY 10/09/17 [History] Prochlorperazine Maleate 10 mg PO Q6H PRN 12/08/17 [History] Sertraline HCl 50 mg PO DAILY 12/08/17 [History] hydrOXYzine Pamoate [Hydroxyzine Pamoate] 25 - 50 mg PO Q6H PRN 12/08/17 [ History] Past Medical History HEENT History: Reports: Impaired Vision Gastrointestinal History: Reports: Chronic Constipation 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: , 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 (See Below) Other OB/BYN History: due date mar 10 2018 Musculoskeletal History: Reports: Back Pain, Chronic Neurological History: Reports: Migraines Psychiatric History: Reports: Anxiety Endocrine/Metabolic History: Reports: Hyperthyroidism Hematologic History: Reports: None Immunologic History: Reports: None - Infectious Disease History Infectious Disease History: Reports: Chicken Pox - Past Surgical History GI Surgical History: Reports: None Endocrine Surgical History: Reports: None Neurological Surgical History: Reports: None Musculoskeletal Surgical History: Reports: None Social & Family History - Family History Family Medical History: Noncontributory - Tobacco Use Smoking Status *Q: Never Smoker - Caffeine Use Caffeine Use: Reports: Coffee ED ROS GENERAL - Review of Systems Review Of Systems: See Below Constitutional: Reports: No Symptoms HEENT: Reports: No Symptoms Respiratory: Reports: No Symptoms Cardiovascular: Reports: No Symptoms Endocrine: Reports: No Symptoms GI/Abdominal: Reports: No Symptoms : Reports: No Symptoms Musculoskeletal: Reports: Other (pt is having a headache. She has alot of neck tightness. ) - Physical Exam Exam: See Below Text/Narrative:: Pt arrived with a migraine in the frontal area. She is nauseated but is not vomiting. She has had the headache for bout 4 days. Exam Limited By: No Limitations General Appearance: Alert, Anxious, Other (pupils equal and reactive. ) Ears: Normal TMs Nose: Normal Inspection Throat/Mouth: Normal Inspection Head Exam: Atraumatic Neck: Tender Lateral Respiratory/Chest: No Respiratory Distress Cardiovascular: Regular Rate, Rhythm GI/Abdominal: Soft, Non-Tender Rectal (Female) Exam: Deferred Neuro Exam (Abbreviated): Alert, Oriented, Normal Cognition Back Exam: Paraspinal Tenderness, Other ( in the cervical area) Extremities: Normal Inspection Psychiatric: Normal Affect Course - Vital Signs Last Recorded V/S: Last Vital Signs Temp 36.6 C 12/08/17 08:28 Pulse 112 H 12/08/17 13:10 Resp 18 12/08/17 13:10 BP 98/53 L 12/08/17 13:10 Pulse Ox 98 12/08/17 13:10 - Orders/Labs/Meds Meds: Medications Discontinued Medications Generic Name Dose Route Start Last Admin Trade Name Ramos PRN Reason Stop Dose Admin Acetaminophen/Aspirin/Caffeine 1 tab 12/08/17 12:56 12/08/17 13:48 Excedrin Extra Strength PO 12/08/17 12:57 1 tab ONETIME ONE Administration Diphenhydramine HCl 25 mg 12/08/17 12:03 12/08/17 12:09 Benadryl IVPUSH 12/08/17 12:04 25 mg ONETIME ONE Administration Diphenhydramine HCl 25 mg 12/08/17 14:20 12/08/17 14:21 Benadryl IVPUSH 12/08/17 14:21 25 mg ONETIME ONE Administration Diphenhydramine HCl Confirm 12/08/17 14:19 Benadryl Administered 12/08/17 14:20 Dose 50 mg .ROUTE .STK-MED ONE Hydromorphone HCl 0.5 mg 12/08/17 09:00 12/08/17 09:17 Dilaudid IVPUSH 12/08/17 09:01 0.5 mg ONETIME ONE Administration Hydromorphone HCl 0.5 mg 12/08/17 09:42 12/08/17 09:51 Dilaudid IVPUSH 12/08/17 09:43 0.5 mg ONETIME ONE Administration Hydromorphone HCl 0.5 mg 12/08/17 10:54 12/08/17 11:08 Dilaudid IVPUSH 12/08/17 10:55 0.5 mg ONETIME ONE Administration Hydromorphone HCl 0.5 mg 12/08/17 13:31 12/08/17 14:21 Dilaudid IVPUSH 12/08/17 13:32 0.5 mg ONETIME ONE Administration Sodium Chloride 1,000 mls @ 999 mls/hr 12/08/17 09:00 12/08/17 09:12 Normal Saline IV 999 mls/hr ASDIRECTED BEKAH Administration Sodium Chloride 1,000 mls @ 999 mls/hr 12/08/17 11:15 12/08/17 11:26 Normal Saline IV 999 mls/hr ASDIRECTED BEKAH Administration Lorazepam 0.25 mg 12/08/17 09:00 12/08/17 09:12 Ativan IVPUSH 12/08/17 09:01 0.25 mg ONETIME ONE Administration Lorazepam 0.5 mg 12/08/17 10:54 12/08/17 11:08 Ativan IVPUSH 12/08/17 10:55 0.5 mg ONETIME ONE Administration Ondansetron HCl 4 mg 12/08/17 08:59 12/08/17 09:13 Zofran IVPUSH 12/08/17 09:00 4 mg ONETIME ONE Administration - Re-Assessments/Exams Free Text/Narrative Re-Assessment/Exam: 12/08/17 09:59 iv fluids were started and she was given 1 mg of dilaudid, ativan .25, zoforan 4gm. 12/08/17 15:04 pt was given coke for the caffeine and excedrin. She still had a persistemt headache and she was geven the dilaudid .5 iv and benadryl 25 mg iv. She now has no headache and is feeling much better Departure - Departure Time of Disposition: 15:06 Disposition: Home, Self-Care 01 Condition: Fair Clinical Impression: Migraine - Discharge Information Instructions: Migraine Headache, [id number] Referrals: Margo Borja MD [Primary Care Provider] - Forms: ED Department Discharge Care Plan Goals: low activity for the next several hours, this evening use caffeine products. imitrex inectable-- use at the begining of the headache. If persistent problem rtc for further evaluation
[2017-12-08] MEDS ORDERED: diphenhydrAMINE 50 MG/ML SDV IVPUSH ONE ×2 (12:03→14:20)
[2017-12-08] MEDS ORDERED: Acetaminophen/Aspirin/Caffeine 250-250-65 MG Tab PO ONE (12:56)
[2017-12-08 13:11] VITALS: BP 98/53
[2017-12-08] MEDS ORDERED: diphenhydrAMINE 50 MG/ML SDV ONE (14:19)
== END 2017-12-08 15:18 | disposition home or self-care (01) ==
LOC: JP.ED 08:11
DX: G43.909 Migraine, unspecified, not intractable, without status migrainosus (principal); E03.9 Hypothyroidism, unspecified; F41.9 Anxiety disorder, unspecified; Z79.899 Other long term (current) drug therapy
CPT/HCPCS: 96361; 96374; 96375; 96376; 99284; A9270; J1170; J1200; J2060; J2405; J7030

== ENCOUNTER 2023-12-13 14:58 | Emergency (ER) | payer SELFPAY ==
[2023-12-13 16:27] LABS: BASOPHILS ABSOLUTE AUTO 0.03 K/uL (0.00-0.10); BASOPHILS PERCENT AUTO 0.3 % (0.1-1.3); EOSINOPHILS ABSOLUTE AUTO 0.08 K/uL (0.00-0.40); EOSINOPHILS PERCENT AUTO 0.9 % (0.0-5.4); HEMATOCRIT 40.9 % (34.3-46.0); HEMOGLOBIN 14.7 g/dL (11.2-15.5); IMMATURE GRAN ABSOLUTE AUTO 0.01 K/uL (0.00-0.23); IMMATURE GRAN PERCENT AUTO 0.1 % (0.0-0.7); LYMPHOCYTES ABSOLUTE AUTO 3.38 K/uL (0.8-3.3); LYMPHOCYTES PERCENT AUTO 37.7 % (11.4-47.7); MEAN CORPUSCULAR HEMOGLOBIN 32.1 pg (31.6-35.5); MEAN CORPUSCULAR HGB CONC 35.9 g/dL (31.6-35.5); MEAN CORPUSCULAR VOLUME 89.3 fL (81.4-99.0); MONOCYTES ABSOLUTE AUTO 0.83 K/uL (0.20-0.90); MONOCYTES PERCENT AUTO 9.3 % (3.3-12.6); NEUTROPHILS ABSOLUTE AUTO 4.64 K/uL (1.0-7.6); NEUTROPHILS PERCENT AUTO 51.7 % (40.0-78.1); PLATELET COUNT,PLT 285 K/uL (130-375); RED BLOOD CELL COUNT 4.58 M/uL (3.77-5.24)
[2023-12-13] MEDS: Ketorolac 15 MG/ML SDV IVPUSH ONE (16:30)
[2023-12-13] MEDS: Sodium Chloride 0.9% 1,000 ML IV ONE (16:31)
[2023-12-13 16:41] LABS: APPEARANCE,URINE CLOUDY (CLEAR); BILIRUBIN,URINE NEGATIVE (NEGATIVE); COLOR,URINE YELLOW (YELLOW); GLUCOSE,URINE NEGATIVE (NEGATIVE); KETONES,URINE NEGATIVE (NEGATIVE); LEUKOCYTE ESTERASE,URINE NEGATIVE (NEGATIVE); NITRITE,URINE NEGATIVE (NEGATIVE); OCCULT BLOOD,URINE NEGATIVE (NEGATIVE); PROTEIN,URINE NEGATIVE (NEGATIVE)
[2023-12-13 16:49] LABS: AMORPHOUS SEDIMENT,URINE NOT SEEN; BACTERIA,URINE MANY; EPITHELIAL CELLS,URINE MANY; MUCUS,URINE FEW; RBC,URINE 0-5 (0-5)
[2023-12-13 16:49] LABS: A/G RATIO 1.1 (1.2-2.2); ALANINE AMINOTRANSFERASE,ALT 30 U/L (12-78); ALBUMIN 3.9 g/dL (3.4-5.0); ALKALINE PHOSPHATASE 150 U/L (46-116); ANION GAP 11.8 mmol/L (5.0-14.0); ASPARTATE AMNIOTRANSFERASE,AST 30 U/L (15-37); BILIRUBIN TOTAL 0.5 mg/dL (0.2-1.0); BLOOD UREA NITROGEN,BUN 16 mg/dL (7-18); CALCIUM 9.1 mg/dL (8.5-10.1); CARBON DIOXIDE,CO2 22 mmol/L (21-32); CHLORIDE,CL 107 mmol/L (100-108); CREATININE 0.7 mg/dL (0.6-1.0); EST CRCL DRUG DOSING (CG) 97.79 mL/min; ESTIMATED GFR 116 mL/min (>60); GLUCOSE RANDOM 105 mg/dL (74-106); POTASSIUM,K 3.9 mmol/L (3.6-5.2); PROTEIN TOTAL,TP 7.5 g/dL (6.4-8.2); SODIUM,NA 141 mmol/L (140-148)
[2023-12-13] MEDS: fentaNYL 50 MCG/ML SDV IVPUSH ONE (17:25)
[2023-12-13] MEDS: HYDROmorphone 1 MG/ML Syringe IVPUSH ONE (18:22)
[2023-12-13 19:23] VITALS: BP 128/78; PULSE 67
== END 2023-12-13 20:39 | disposition home or self-care (01) ==
LOC: JP.ED 14:58
DX: N23 Unspecified renal colic (principal); Z79.899 Other long term (current) drug therapy
CPT/HCPCS: 36415; 74176; 80053; 81001; 81025; 85025; 87086; 96361; 96374; 96375; 99284; J1170; J1885; J3010; J7030

== ENCOUNTER 2024-01-02 17:02 | Emergency (ER) | payer SELFPAY ==
[2024-01-02 18:45] VITALS: BP 128/88; PULSE 71
[2024-01-02] MEDS: Methocarbamol 500 MG Tab PO ONE (19:21)
== END 2024-01-02 19:56 | disposition home or self-care (01) ==
LOC: JP.ED 17:02
DX: S39.012A Strain of muscle, fascia and tendon of lower back, initial encounter (principal); E03.9 Hypothyroidism, unspecified; Z90.710 Acquired absence of both cervix and uterus; Z79.890 Hormone replacement therapy; Z79.899 Other long term (current) drug therapy; Z88.8 Allergy status to other drugs, medicaments and biological substances; X50.0XXA Overexertion from strenuous movement or load, initial encounter
CPT/HCPCS: 99283; A9270-GY

== ENCOUNTER 2024-01-17 12:13 | Emergency (ER) | payer MEDICAID ==
[2024-01-17 13:04] VITALS: BP 118/82; PULSE 79
[2024-01-17] MEDS: Ibuprofen 600 MG Tab PO ONE (15:52)
== END 2024-01-17 16:09 | disposition home or self-care (01) ==
LOC: JP.ED 12:13
DX: S60.132A Contusion of left middle finger with damage to nail, initial encounter (principal); E03.9 Hypothyroidism, unspecified; Z90.710 Acquired absence of both cervix and uterus; Z79.899 Other long term (current) drug therapy; Z88.8 Allergy status to other drugs, medicaments and biological substances; W23.0XXA Caught, crushed, jammed, or pinched between moving objects, initial encounter
CPT/HCPCS: 73130; 99283; A9270

== ENCOUNTER 2024-03-31 04:50 | Emergency (ER) | payer MEDICAID ==
[2024-03-31 05:13] LABS: APPEARANCE,URINE CLOUDY (CLEAR); BILIRUBIN,URINE NEGATIVE (NEGATIVE); COLOR,URINE YELLOW (YELLOW); GLUCOSE,URINE NEGATIVE (NEGATIVE); KETONES,URINE NEGATIVE (NEGATIVE); LEUKOCYTE ESTERASE,URINE MODERATE (NEGATIVE); NITRITE,URINE POSITIVE (NEGATIVE); OCCULT BLOOD,URINE MODERATE (NEGATIVE); PROTEIN,URINE TRACE mg/dL (NEGATIVE)
[2024-03-31 05:40] LABS: AMORPHOUS SEDIMENT,URINE NOT SEEN; BACTERIA,URINE MANY; EPITHELIAL CELLS,URINE MODERATE; MUCUS,URINE NOT SEEN; WBC,URINE >100 (0-5)
[2024-03-31] MEDS: Ketorolac 30 MG/ML SDV IVPUSH ONE (06:21)
[2024-03-31] MEDS: cefTRIAXone 1 GM in Sodium Chloride 0.9% 50 ML IV ONE (06:30)
[2024-03-31] MEDS: HYDROmorphone 0.5 MG/0.5 ML Syringe IVPUSH ONE (06:43)
[2024-03-31 06:51] VITALS: BP 121/71; PULSE 50
== END 2024-03-31 08:21 | disposition home or self-care (01) ==
LOC: JP.ED 04:50
DX: N20.0 Calculus of kidney (principal); N39.0 Urinary tract infection, site not specified; E03.9 Hypothyroidism, unspecified; Z79.890 Hormone replacement therapy; Z90.710 Acquired absence of both cervix and uterus; Z88.8 Allergy status to other drugs, medicaments and biological substances
CPT/HCPCS: 74176; 81001; 87086; 87088; 87186; 96365; 96375; 99284; J0696; J1170; J1885; J3490

== ENCOUNTER 2024-04-20 07:04 | Emergency (ER) | payer MEDICAID ==
[2024-04-20 07:11] VITALS: BP 130/73; PULSE 77
[2024-04-20] MEDS: Ketorolac 30 MG/ML SDV IM ONE (07:41)
[2024-04-20 07:50] LABS: APPEARANCE,URINE SLIGHTLY CLOUDY (CLEAR); BILIRUBIN,URINE NEGATIVE (NEGATIVE); COLOR,URINE YELLOW (YELLOW); GLUCOSE,URINE NEGATIVE (NEGATIVE); KETONES,URINE NEGATIVE (NEGATIVE); LEUKOCYTE ESTERASE,URINE NEGATIVE (NEGATIVE); NITRITE,URINE NEGATIVE (NEGATIVE); OCCULT BLOOD,URINE NEGATIVE (NEGATIVE); PROTEIN,URINE NEGATIVE (NEGATIVE)
[2024-04-20 07:56] LABS: BACTERIA,URINE MANY; EPITHELIAL CELLS,URINE MANY; MUCUS,URINE NOT SEEN; RBC,URINE NOT SEEN (0-5); WBC,URINE NOT SEEN (0-5)
[2024-04-20 07:57] LABS: AMORPHOUS SEDIMENT,URINE FEW
[2024-04-20] MEDS: HYDROmorphone 1 MG/ML Syringe IM ONE (08:09)
[2024-04-20 08:55] LABS: BASOPHILS ABSOLUTE AUTO 0.04 K/uL (0.00-0.10); BASOPHILS PERCENT AUTO 0.6 % (0.1-1.3); EOSINOPHILS ABSOLUTE AUTO 0.06 K/uL (0.00-0.40); EOSINOPHILS PERCENT AUTO 0.9 % (0.0-5.4); HEMATOCRIT 40.9 % (34.3-46.0); HEMOGLOBIN 14.4 g/dL (11.2-15.5); IMMATURE GRAN PERCENT AUTO 0.2 % (0.0-0.7); LYMPHOCYTES ABSOLUTE AUTO 2.64 K/uL (0.8-3.3); LYMPHOCYTES PERCENT AUTO 39.8 % (11.4-47.7); MEAN CORPUSCULAR HEMOGLOBIN 32.2 pg (31.6-35.5); MEAN CORPUSCULAR HGB CONC 35.2 g/dL (31.6-35.5); MEAN CORPUSCULAR VOLUME 91.5 fL (81.4-99.0); NEUTROPHILS ABSOLUTE AUTO 3.28 K/uL (1.0-7.6); NEUTROPHILS PERCENT AUTO 49.5 % (40.0-78.1); PLATELET COUNT,PLT 200 K/uL (130-375); RED BLOOD CELL COUNT 4.47 M/uL (3.77-5.24); WHITE BLOOD CELL COUNT,WBC 6.6 K/uL (3.2-11.0)
[2024-04-20 08:56] LABS: IMMATURE GRAN ABSOLUTE AUTO 0.01 K/uL (0.00-0.23)
[2024-04-20] MEDS: droPERidol 5 MG/2 ML SDV IM ONE (08:58)
[2024-04-20 09:16] LABS: A/G RATIO 1.2 (1.2-2.2); ALANINE AMINOTRANSFERASE,ALT 17 U/L (12-78); ALBUMIN 4.1 g/dL (3.4-5.0); ALKALINE PHOSPHATASE 150 U/L (46-116); ANION GAP 13.1 mmol/L (5.0-14.0); ASPARTATE AMNIOTRANSFERASE,AST 26 U/L (15-37); BILIRUBIN TOTAL 0.6 mg/dL (0.2-1.0); BLOOD UREA NITROGEN,BUN 20 mg/dL (7-18); CALCIUM 9.7 mg/dL (8.5-10.1); CARBON DIOXIDE,CO2 22 mmol/L (21-32); CHLORIDE,CL 107 mmol/L (100-108); CREATININE 0.8 mg/dL (0.6-1.0); EST CRCL DRUG DOSING (CG) 85.56 mL/min; ESTIMATED GFR 99 mL/min (>60); GLUCOSE RANDOM 97 mg/dL (74-106); POTASSIUM,K 4.1 mmol/L (3.6-5.2); PROTEIN TOTAL,TP 7.5 g/dL (6.4-8.2); SODIUM,NA 142 mmol/L (140-148)
== END 2024-04-20 10:26 | disposition home or self-care (01) ==
LOC: JP.ED 07:04
DX: G89.29 Other chronic pain (principal); R10.9 Unspecified abdominal pain; Z79.899 Other long term (current) drug therapy; Z88.8 Allergy status to other drugs, medicaments and biological substances
CPT/HCPCS: 36415; 74176; 80053; 81001; 81025; 83605; 83690; 85025; 96372; 99284; J1171; J1790; J1885

== ENCOUNTER 2024-07-14 20:18 | Emergency (ER) | payer MEDICAID ==
[2024-07-14 20:29] VITALS: BP 136/81; PULSE 94
[2024-07-14] MEDS: Ketorolac 30 MG/ML SDV IM ONE (21:21)
[2024-07-14] MEDS: Bacitracin Oint 1 GM U/D Packet TOP ONE (22:23)
== END 2024-07-14 22:36 | disposition home or self-care (01) ==
LOC: JP.ED 20:18
DX: S83.92XA Sprain of unspecified site of left knee, initial encounter (principal); S80.812A Abrasion, left lower leg, initial encounter; E03.9 Hypothyroidism, unspecified; F17.210 Nicotine dependence, cigarettes, uncomplicated; Z86.16 Personal history of COVID-19; Z98.84 Bariatric surgery status; Z90.710 Acquired absence of both cervix and uterus; Z88.8 Allergy status to other drugs, medicaments and biological substances; Z79.890 Hormone replacement therapy; Z79.899 Other long term (current) drug therapy; W17.2XXA Fall into hole, initial encounter
CPT/HCPCS: 73562; 73590; 96372; 99283; J1885

== ENCOUNTER 2024-09-14 16:20 | Emergency (ER) | payer MEDICAID ==
[2024-09-14 16:56] LABS: APPEARANCE,URINE CLEAR (CLEAR); BILIRUBIN,URINE NEGATIVE (NEGATIVE); COLOR,URINE YELLOW (YELLOW); GLUCOSE,URINE NEGATIVE (NEGATIVE); KETONES,URINE NEGATIVE (NEGATIVE); LEUKOCYTE ESTERASE,URINE NEGATIVE (NEGATIVE); NITRITE,URINE NEGATIVE (NEGATIVE); OCCULT BLOOD,URINE NEGATIVE (NEGATIVE); PH,URINE 6.5 (5.0-8.0); PROTEIN,URINE NEGATIVE (NEGATIVE)
[2024-09-14 17:04] LABS: AMORPHOUS SEDIMENT,URINE NOT SEEN; BACTERIA,URINE FEW; EPITHELIAL CELLS,URINE FEW; MUCUS,URINE NOT SEEN; RBC,URINE 0-5 (0-5); WBC,URINE 0-5 (0-5)
[2024-09-14] MEDS ORDERED: Ketorolac 15 MG/ML SDV IVPUSH ONE (17:09)
[2024-09-14 17:22] LABS: BASOPHILS ABSOLUTE AUTO 0.03 K/uL (0.00-0.10); BASOPHILS PERCENT AUTO 0.4 % (0.1-1.3); EOSINOPHILS ABSOLUTE AUTO 0.09 K/uL (0.00-0.40); EOSINOPHILS PERCENT AUTO 1.1 % (0.0-5.4); HEMATOCRIT 40.1 % (34.3-46.0); IMMATURE GRAN ABSOLUTE AUTO 0.01 K/uL (0.00-0.23); IMMATURE GRAN PERCENT AUTO 0.1 % (0.0-0.7); LYMPHOCYTES ABSOLUTE AUTO 3.51 K/uL (0.8-3.3); LYMPHOCYTES PERCENT AUTO 43.9 % (11.4-47.7); MEAN CORPUSCULAR HEMOGLOBIN 32.4 pg (31.6-35.5); MEAN CORPUSCULAR HGB CONC 34.9 g/dL (31.6-35.5); MEAN CORPUSCULAR VOLUME 92.8 fL (81.4-99.0); MONOCYTES ABSOLUTE AUTO 0.71 K/uL (0.20-0.90); MONOCYTES PERCENT AUTO 8.9 % (3.3-12.6); NEUTROPHILS ABSOLUTE AUTO 3.65 K/uL (1.0-7.6); NEUTROPHILS PERCENT AUTO 45.6 % (40.0-78.1); PLATELET COUNT,PLT 231 K/uL (130-375); RED BLOOD CELL COUNT 4.32 M/uL (3.77-5.24)
[2024-09-14] MEDS: Ondansetron 4 MG/2 ML SDV IVPUSH ONE (17:29)
[2024-09-14] MEDS: Morphine 2 MG/ML SYRINGE IVPUSH ONE (17:30)
[2024-09-14] MEDS: Sodium Chloride 0.9% 80 ML IV ONE (17:40)
[2024-09-14] MEDS: Sodium Chloride 0.9% 10 ML Syringe FLUSH PRN (17:40)
[2024-09-14] MEDS: Iopamidol 612 MG/ML 100 ML Bottle IV PRN (17:40)
[2024-09-14 17:44] LABS: A/G RATIO 1.1 (1.2-2.2); ALANINE AMINOTRANSFERASE,ALT 22 U/L (12-78); ALBUMIN 3.6 g/dL (3.4-5.0); ALKALINE PHOSPHATASE 149 U/L (46-116); ANION GAP 11.6 mmol/L (5.0-14.0); ASPARTATE AMNIOTRANSFERASE,AST 30 U/L (15-37); BILIRUBIN TOTAL 0.3 mg/dL (0.2-1.0); BLOOD UREA NITROGEN,BUN 22 mg/dL (7-18); CALCIUM 9.2 mg/dL (8.5-10.1); CARBON DIOXIDE,CO2 26 mmol/L (21-32); CHLORIDE,CL 105 mmol/L (100-108); CREATININE 0.9 mg/dL (0.6-1.0); EST CRCL DRUG DOSING (CG) 75.34 mL/min; ESTIMATED GFR 86 mL/min (>60); GLUCOSE RANDOM 86 mg/dL (74-106); POTASSIUM,K 4.1 mmol/L (3.6-5.2); PROTEIN TOTAL,TP 6.8 g/dL (6.4-8.2); SODIUM,NA 143 mmol/L (140-148)
[2024-09-14] MEDS: Sodium Chloride 0.9% 1,000 ML IV ONE (18:38)
[2024-09-14] MEDS: Ketorolac 15 MG/ML SDV IVPUSH ONE (18:48)
[2024-09-14] MEDS: Morphine 4 MG/ML Syringe IVPUSH ONE (20:56)
[2024-09-14 21:18] VITALS: BP 104/68; PULSE 57
== END 2024-09-14 21:34 | disposition home or self-care (01) ==
LOC: JP.ED 16:20
DX: R10.31 Right lower quadrant pain (principal); R11.2 Nausea with vomiting, unspecified; E03.9 Hypothyroidism, unspecified; Z88.8 Allergy status to other drugs, medicaments and biological substances; Z79.890 Hormone replacement therapy; Z79.899 Other long term (current) drug therapy; Z86.16 Personal history of COVID-19
CPT/HCPCS: 36415; 74177; 80053; 81001; 81025; 85025; 96361; 96374; 96375; 96376; 99284; J1885; J2270; J2405; J7030; Q9967; 99283

== ENCOUNTER 2025-04-02 10:34 | Emergency (ER) | payer MEDICAID ==
[2025-04-02 11:22] LABS: APPEARANCE,URINE SLIGHTLY CLOUDY (CLEAR); GLUCOSE,URINE NEGATIVE (NEGATIVE); OCCULT BLOOD,URINE TRACE-INTACT (NEGATIVE)
[2025-04-02 11:32] LABS: SQUAMOUS EPITHELIAL CELLS,UR MODERATE /HPF; UROTHELIAL CELLS,URINE NOT SEEN /HPF
[2025-04-02 13:13] VITALS: BP 104/66; PULSE 65
== END 2025-04-02 13:57 | disposition home or self-care (01) ==
LOC: JP.ED 10:34
DX: N39.0 Urinary tract infection, site not specified (principal); E03.9 Hypothyroidism, unspecified; Z86.16 Personal history of COVID-19; Z79.890 Hormone replacement therapy; Z79.899 Other long term (current) drug therapy; Z88.8 Allergy status to other drugs, medicaments and biological substances
CPT/HCPCS: 81001; 87086; 87088; 87186; 99283; 99284